=== PATIENT | female | born 1980 | race Caucasian/White ===

== ENCOUNTER 2024-02-11 10:11 | Emergency (ER) | payer BC ==
[~2024-02-11] VITALS: Ht 165.1 cm; Wt 122.0 kg
[2024-02-11 10:42] VITALS: BP 118/63; TEMP 98
[2024-02-11] MEDS ORDERED: IBUPROFEN 600 MG TABLET ONE (11:10)
[2024-02-11] MEDS ORDERED: IBUPROFEN 400 MG TABLET ONE (11:11)
[2024-02-11] MEDS: IBUPROFEN 400 MG TABLET PO ONE (11:13)
[2024-02-11 12:30] VITALS: O2SAT 98
== END 2024-02-11 12:31 | disposition home or self-care (01) ==
LOC: ER 10:30
DX: M25.562 Pain in left knee (principal); F17.290 Nicotine dependence, other tobacco product, uncomplicated; Z87.42 Personal history of other diseases of the female genital tract; X50.1XXA Overexertion from prolonged static or awkward postures, initial encounter; Y93.89 Activity, other specified; Y92.89 Other specified places as the place of occurrence of the external cause; Y99.8 Other external cause status
CPT/HCPCS: 73564-TC